=== PATIENT | female | born 1980 | race Caucasian/White ===

== ENCOUNTER 2022-01-04 09:51 | Outpatient (CLI) | payer OTHER | END 2022-01-04 09:52 | disposition home or self-care (01) | LOC: BICMAMMO 09:51 | PROVIDERS: ATTEND Surgery | DX: N63.0 Unspecified lump in unspecified breast (principal) | CPT/HCPCS: 77066; G0279 ==

== ENCOUNTER 2022-01-30 09:26 | Outpatient (CLI) | payer OTHER ==
[2022-01-30 12:43] LABS: #Basophils 0.1 10x3/uL (0.0-0.2); #Eosinphils 0.2 10x3/uL (0.0-0.5); #Monocytes 0.6 10x3/uL (0.0-1.1); #Neutrophils 6.3 10x3/uL (1.5-8.4); %Basophils 0.6 % (0.0-2.0); %Eosinophils 2.3 % (0.0-6.0); %Lymphocytes 29.9 % (18.0-47.0); %Monocytes 5.8 % (0.0-10.0); Hemoglobin 13.6 g/dL (12.0-15.5); Mean Corpuscular HGB CONC 34.2 g/dL (32.0-36.0); Mean Corpuscular Volume 90.7 fl (81.6-98.3); Mean Platelet Volume 11.3 fl (7.4-10.4); Platelet Count 300 10x3/uL (150-450); RBC Distribution Width 13.3 % (11.5-14.5); Red Blood Cell (RBC) Count 4.39 10x6/uL (3.90-5.03); White Blood Cell (WBC) Count 10.4 10x3/uL (3.5-10.5)
[2022-01-30 13:21] LABS: Anion Gap 17 mmol/L (10-20); BUN (Urea Nitrogen) 17 mg/dL (7.0-18.7); Calc. Creatinine Clearance 0 mL/min (70-130); Calcium 9.3 mg/dL (7.8-10.44); Carbon Dioxide 29 mmol/L (22-29); Chloride 99 mmol/L (98-107); Estimated GFR 100; Glucose 112 mg/dL (70-105); Sodium 142 mmol/L (136-145)
[2022-01-30 13:28] LABS: Potassium 2.8 mmol/L (3.5-5.1)
== END 2022-01-30 09:27 | disposition home or self-care (01) ==
LOC: LABBT 09:26
PROVIDERS: ATTEND Surgery
DX: Z01.818 Encounter for other preprocedural examination (principal); S21.002A Unspecified open wound of left breast, initial encounter; Z20.822 Contact with and (suspected) exposure to COVID-19; R94.31 Abnormal electrocardiogram [ECG] [EKG]
CPT/HCPCS: 80048; 85025; 87811; 93005; 93010

== ENCOUNTER → 2022-02-02 | Day surgery (SDC) | payer OTHER ==
[2022-02-01 10:08] VITALS: BMI 45.3
[2022-02-02 12:37] LABS: Potassium 2.6 mmol/L (3.5-5.1)
== END | disposition home or self-care (01) ==
LOC: SDC 10:59
PROVIDERS: ATTEND Surgery
DX: S21.002A Unspecified open wound of left breast, initial encounter (principal); Z53.09 Procedure and treatment not carried out because of other contraindication; Z79.899 Other long term (current) drug therapy; Z88.5 Allergy status to narcotic agent; Z88.6 Allergy status to analgesic agent; Z91.048 Other nonmedicinal substance allergy status
CPT/HCPCS: 36415; 84132

== ENCOUNTER 2022-02-12 11:08 | Day surgery (SDC) | payer OTHER ==
[2022-02-12 11:24] VITALS: BMI 46.8
[2022-02-12] MEDS ORDERED: fentaNYL Citrate/PF 100 MCG/2 ML SYRINGE ONE (13:02)
[2022-02-12] MEDS ORDERED: Bupivacaine 0.25% HCL 30 ML VIAL ONE (13:03)
[2022-02-12] MEDS ORDERED: EPINEPHrine 1 MG/ML AMP ONE (13:04)
[2022-02-12] MEDS ORDERED: Lidocaine 1% (PF) 30 ML VIAL ONE (13:05)
[2022-02-12] MEDS ORDERED: Sodium Chloride 0.9% 100 ML ONE (13:18)
[2022-02-12] MEDS ORDERED: CEFAZOLIN 2 GM VIAL ONE (13:18)
[2022-02-12] MEDS ORDERED: Ondansetron PF 4 MG/2 ML Vial ONE (13:31)
[2022-02-12] MEDS ORDERED: PROPOFOL 200 MG/20 ML VIAL ONE (13:31)
[2022-02-12] MEDS ORDERED: Albuterol Sulfate HFA (OR ONLY) ONE (13:31)
[2022-02-12] MEDS ORDERED: Dexamethasone 20 MG/5 ML VIAL ONE (13:31)
[2022-02-12] MEDS ORDERED: Rocuronium Bromide 10 MG/ML (10ML VIAL) ONE (13:31)
[2022-02-12] MEDS ORDERED: Promethazine HCl 25 MG/ML VIAL ONE ×2 (13:50→14:48)
[2022-02-12] MEDS ORDERED: Fentanyl 100 MCG/2 ML VIAL ONE ×2 (14:22→14:37)
[2022-02-12] MEDS ORDERED: Meperidine HCl/PF 25 MG/ML VIAL ONE (14:29)
[2022-02-12] MEDS ORDERED: Morphine 2 MG/ML VIAL ONE (15:42)
[2022-02-12] MEDS ORDERED: HYDROcodone/Acetaminophen 5/325 mg Tablet ONE (16:17)
[2022-02-12] MEDS ORDERED: Ketorolac Tromethamine 30 MG/ML VIAL ONE (16:45)
== END 2022-02-12 17:36 | disposition home or self-care (01) ==
LOC: SDC 11:08
PROVIDERS: ATTEND Surgery
PROC: 0HBU0ZZ Excision of Left Breast, Open Approach (ICD-10-PCS; principal; 2022-02-12)
DX: N60.02 Solitary cyst of left breast (principal); N60.12 Diffuse cystic mastopathy of left breast; Z79.899 Other long term (current) drug therapy; Z88.5 Allergy status to narcotic agent; Z91.048 Other nonmedicinal substance allergy status
CPT/HCPCS: 88304; J0171; J1100; J1885; J2001; J2175; J2270; J2405; J2550; J2704; J3010; J3490; S0020